=== PATIENT | female | born 1950 | race Caucasian/White ===

== ENCOUNTER → 2017-08-06 | Outpatient (CLI) | payer MEDICARE | END | disposition home or self-care (01) | LOC: CFH 10:38 | PROVIDERS: ATTEND Otolaryngology | DX: F45.8 Other somatoform disorders (principal); R05 Cough; K21.9 Gastro-esophageal reflux disease without esophagitis | CPT/HCPCS: 74220 ==

== ENCOUNTER 2017-12-05 16:42 | Inpatient (IN) | payer MEDICARE ==
[~2017-12-05] VITALS: Ht 162.6 cm; Wt 71.6 kg
[2017-12-05] MEDS ORDERED: SODIUM CHLORIDE FLUSH 10ML SYR IVF ONE (17:00)
[2017-12-05 17:31] LABS: BASOPHILS # (AUTO) 0.03 x10^3/uL (0-0.1); BASOPHILS % (AUTO) 0 % (0-1); EOSINOPHILS # (AUTO) 0.24 x10^3/uL (0-0.4); EOSINOPHILS % (AUTO) 2 % (1-7); LYMPHOCYTES # (AUTO) 1.82 x10^3/uL (1-3.4); LYMPHOCYTES % (AUTO) 16 % (22-44); MD NO; MEAN CORPUSCULAR HEMOGLOBIN 32.9 pg (27.0-34.8); MEAN CORPUSCULAR HGB CONC 34.2 g/dL (32.4-35.8); MEAN CORPUSCULAR VOLUME 96.3 fL (80-100); MEAN PLATELET VOLUME 10.4 fL (7.4-10.4); MONOCYTES # (AUTO) 0.75 x10^3/uL (0.2-0.8); MONOCYTES % (AUTO) 7 % (2-9); NEUTROPHILS # (AUTO) 8.45 x10^3/uL (1.8-6.8); NEUTROPHILS % (AUTO) 75 % (42-75); PLATELET COUNT 266 x10^3/uL (130-400); RED BLOOD COUNT 4.31 x10^6/uL (3.82-5.3); RED CELL DISTRIBUTION WIDTH 15.4 % (9.6-15.2)
[2017-12-05 17:39] LABS: ALANINE AMINOTRANSFERASE 43 U/L (12-78); ALBUMIN 3.7 g/dL (3.4-5.0); ANION GAP 9 mmol/L (5-15); CHLORIDE 104 mmol/L (98-107); CREATININE 1.14 mg/dL (0.55-1.02)
[2017-12-05 17:44] LABS: ALKALINE PHOSPHATASE 106 U/L (45-117); BILIRUBIN,TOTAL 0.4 mg/dL (0.2-1.0); FREE T4 (FREE THYROXINE) 1.08 ng/dL (0.76-1.46); TOTAL PROTEIN 7.3 g/dL (6.4-8.2); TROPONIN I < 0.015 ng/mL (0.000-0.045)
[2017-12-05 17:50] LABS: THYROID STIMULATING HORMONE 0.584 mIU/L (0.358-3.740)
[2017-12-05] MEDS ORDERED: AMLO5TAB4 PO (18:29)
[2017-12-05] MEDS ORDERED: ALBU8.5H8 INH (18:29)
[2017-12-05] MEDS ORDERED: LEVO100T PO (18:29)
[2017-12-05] MEDS ORDERED: ATEN25TA PO (18:29)
[2017-12-05] MEDS ORDERED: LIOT5TAB3 PO (18:29)
[2017-12-05] MEDS ORDERED: asthmanex (18:29)
[2017-12-05] MEDS ORDERED: MONT10TA9 PO (18:29)
[2017-12-05] MEDS ORDERED: CHOL2000 PO (18:29)
[2017-12-05] MEDS ORDERED: GABA300C10 PO (18:29)
[2017-12-05 20:23] VITALS: BP_SYST 122; BP_SYST 127; BP_SYST 143; BP_DIAS 72; BP_DIAS 82; BP_DIAS 84
[2017-12-05] MEDS ORDERED: POLYETHYLENE GLYCOL 17 GM PACKET PO PRN (20:30)
[2017-12-05] MEDS ORDERED: ONDANSETRON 2MG/ML, 2ML IVPush PRN (20:30)
[2017-12-05] MEDS ORDERED: ACETAMINOPHEN 325 MG TABLET PO PRN (20:30)
[2017-12-05] MEDS: LIOTHYRONINE 5 MCG TABLET PO SCH ×2 (21:05→21:08)
[2017-12-05] MEDS: SODIUM CHLORIDE 0.9% 1,000 ML IV SCH (21:05)
[2017-12-05] MEDS: GABAPENTIN 100 MG CAPSULE PO SCH (21:06)
[2017-12-05 22:55] LABS: TROPONIN I < 0.015 ng/mL (0.000-0.045)
[2017-12-06 02:00] VITALS: BP 105/64
[2017-12-06] MEDS: SODIUM CHLORIDE 0.9% 1,000 ML IV SCH (05:06)
[2017-12-06 05:30] LABS: ANION GAP 10 mmol/L (5-15); CALCIUM 8.6 mg/dL (8.5-10.1); CHLORIDE 111 mmol/L (98-107); CREATININE 0.95 mg/dL (0.55-1.02)
[2017-12-06 05:34] LABS: TROPONIN I < 0.015 ng/mL (0.000-0.045)
[2017-12-06 05:40] LABS: THYROID STIMULATING HORMONE 0.513 mIU/L (0.358-3.740)
[2017-12-06] MEDS ORDERED: LEVOTHYROXINE 100 MCG TABLET PO SCH (06:00)
[2017-12-06 07:20] VITALS: BP 125/82
[2017-12-06 07:25] VITALS: BP 141/86
[2017-12-06 07:30] VITALS: BP 145/91
[2017-12-06] MEDS ORDERED: REGADENOSON 0.4 MG/5 ML SYRINGE ONE (08:51)
[2017-12-06] MEDS: GABAPENTIN 100 MG CAPSULE PO SCH (08:56)
[2017-12-06] MEDS: LIOTHYRONINE 5 MCG TABLET PO SCH (08:56)
[2017-12-06] MEDS ORDERED: CHOLECALCIFEROL 1,000 UNIT TABLET PO SCH (09:00)
[2017-12-06] MEDS ORDERED: AMLODIPINE 5 MG TABLET PO SCH (09:00)
[2017-12-06] MEDS ORDERED: MONTELUKAST 10 MG TABLET PO SCH (09:00)
[2017-12-06 12:50] VITALS: BP 127/68
== END 2017-12-06 16:25 | disposition home or self-care (01) | DRG 74 ==
LOC: ED 18:32 → EDIP 19:20 → 5SO 20:23 → DCLOUNGE 12-06 16:06
PROVIDERS: ADMIT Hospitalist; ATTEND Hospitalist
DX: G90.8 Other disorders of autonomic nervous system (principal); E89.0 Postprocedural hypothyroidism; I10 Essential (primary) hypertension; R79.89 Other specified abnormal findings of blood chemistry; H93.19 Tinnitus, unspecified ear; I35.8 Other nonrheumatic aortic valve disorders; I70.0 Atherosclerosis of aorta; J45.909 Unspecified asthma, uncomplicated; Z80.1 Family history of malignant neoplasm of trachea, bronchus and lung; Z82.49 Family history of ischemic heart disease and other diseases of the circulatory system; Z96.659 Presence of unspecified artificial knee joint
CPT/HCPCS: 36415; 70450; 71045; 72072; 78452; 80048; 80053; 83735; 84100; 84439; 84443; 84484; 85025; 93005; 93017; 93306; 99285; J2785; A9502; C9898; J7030

== ENCOUNTER 2019-03-26 08:45 | Outpatient (CLI) | payer MEDICARE ==
[~2019-03-26 08:45] MED LIST: ALBU8.5H8 INH; AMLO5TAB4 PO; ATEN25TA PO; CHOL2000 PO; GABA300C10 PO; LEVO100T PO; LIOT5TAB PO; MONT10TA9 PO; asthmanex
== END 2019-03-26 23:59 | disposition home or self-care (01) ==
LOC: CFH 08:45
PROVIDERS: ATTEND Nurse Practitioner Primary Care
DX: R91.8 Other nonspecific abnormal finding of lung field (principal); E03.9 Hypothyroidism, unspecified; J45.909 Unspecified asthma, uncomplicated; I10 Essential (primary) hypertension
CPT/HCPCS: 71250

== ENCOUNTER → 2019-07-16 | Outpatient (CLI) | payer MEDICARE ==
[~2019-07-16] MED LIST changes: -LIOT5TAB PO; +LIOT5TAB11 PO
== END | disposition home or self-care (01) ==
LOC: CFH 08:20
PROVIDERS: ATTEND Internal Medicine Cardiovascular Disease
DX: R93.1 Abnormal findings on diagnostic imaging of heart and coronary circulation (principal)
CPT/HCPCS: 75571

== ENCOUNTER → 2019-08-08 | Outpatient (CLI) | payer MEDICARE ==
[~2019-08-08] MED LIST changes: +REGADENOSON 0.4 MG/5 ML SYRINGE ONE
== END | disposition home or self-care (01) ==
LOC: CFH 08:07
PROVIDERS: ATTEND Internal Medicine Cardiovascular Disease
DX: Z01.810 Encounter for preprocedural cardiovascular examination (principal); R07.9 Chest pain, unspecified
CPT/HCPCS: 78452; 93017; A9502; J2785

== ENCOUNTER → 2019-09-17 | Outpatient (CLI) | payer MEDICARE ==
[~2019-09-17] MED LIST changes: -REGADENOSON 0.4 MG/5 ML SYRINGE ONE
== END | disposition home or self-care (01) ==
LOC: CFH 14:32
PROVIDERS: ATTEND Internal Medicine
DX: Z12.31 Encounter for screening mammogram for malignant neoplasm of breast (principal); J84.10 Pulmonary fibrosis, unspecified; I10 Essential (primary) hypertension; E03.9 Hypothyroidism, unspecified; K21.9 Gastro-esophageal reflux disease without esophagitis; Z96.612 Presence of left artificial shoulder joint
CPT/HCPCS: 71250; 77067

== ENCOUNTER → 2020-07-01 | Outpatient (CLI) | payer MEDICARE ==
[~2020-07-01] MED LIST changes: +MONT10TA11 PO; -MONT10TA9 PO
== END | disposition home or self-care (01) ==
LOC: CFH 15:26
PROVIDERS: ATTEND Internal Medicine
DX: R91.8 Other nonspecific abnormal finding of lung field (principal)
CPT/HCPCS: 71250